=== PATIENT | female | born 1960 | race Caucasian/White ===

== ENCOUNTER → 2016-11-13 | Outpatient (CLI) | payer OTHER ==
--- NOTE | 2016-11-14 07:56 | MM ---
Reason for exam: screening (asymptomatic). Last mammogram was performed 1 year ago. History: Patient is postmenopausal. Family history of breast cancer in aunt at age 82. Benign core biopsy of the left breast, 1996. Physical Findings: A clinical breast exam by your physician is recommended on an annual basis and results should be correlated with mammographic findings. MG Screening Mammo w CAD Bilateral CC and MLO view(s) were taken. Prior study comparison: November 09, 2015, bilateral MG screening mammo w CAD. October 09, 2014, bilateral MG screening mammo w CAD. The breast tissue is heterogeneously dense. This may lower the sensitivity of mammography. No significant changes when compared with prior studies. ASSESSMENT: Benign, BI-RAD 2 RECOMMENDATION: Routine screening mammogram of both breasts in 1 year.
== END | disposition home or self-care (01) ==
LOC: RADMAMWWP 08:07
PROVIDERS: ATTEND Family Medicine
DX: Z12.31 Encounter for screening mammogram for malignant neoplasm of breast (principal)

== ENCOUNTER → 2017-11-24 | Outpatient (CLI) | payer MEDICARE, OTHER ==
--- NOTE | 2017-11-25 13:26 | CT ---
EXAMINATION TYPE: CT lumbar spine wo con DATE OF EXAM: 11/24/2017 9:08 AM COMPARISON: None HISTORY: Degeneration of lumbar intervertebral disc CT DLP: 1571.8 mGycm Automated exposure control for dose reduction was used. TECHNIQUE: Unenhanced CT of the lumbar spine was performed. Bone and soft tissue window settings are submitted as well as coronal and sagittal reconstructions. FINDINGS: The lumbar spine vertebral bodies maintain normal vertebral body height and alignment. Mult ilevel intervertebral disc space narrowing, facet arthropathy, endplate sclerosis, small anterior ost eophytes and vacuum disc phenomena are seen. No acute fracture or dislocation of the lumbar spine. Sa croiliac joints are symmetric with mild degenerative change. Overall evaluation for disc herniation a nd spinal canal stenosis is limited on CT and would be better evaluated with MRI. L1-L2: Normal disc space height. No disc herniation protrusion or central stenosis. No facet joint arthropathy. No evidence for foraminal encroachment. L2-L3: There is a broad-based disc bulge and facet arthropathy resulting in mild left and moderate ri ght neural foraminal narrowing. No significant spinal canal stenosis. L3-L4: There is a broad-based disc bulge and facet arthropathy with posterior disc osteophyte complex es resulting in moderate bilateral neural foraminal narrowing and no significant spinal canal stenosi s. L4-L5: There is a broad-based disc bulge and facet arthropathy with ligamentum flavum buckling result ing in moderate to severe bilateral neural foraminal narrowing and mild spinal canal stenosis. Possib le central disc herniation is seen although better evaluated with MRI. L5-S1: Intervertebral disc desiccation, broad-based disc bulge and vacuum disc disease are seen witho ut focal protrusion to suggest herniation. Mild bilateral neural foraminal narrowing is present witho ut spinal canal stenosis. IMPRESSION: 1. Multilevel moderate disc disease most exaggerated at L4-L5 with possible small disc herniation at this level that would be better evaluated with MRI. As a result of disc disease at L4-L5 there is mil d spinal canal stenosis and moderate to severe bilateral neural foraminal narrowing. 2. Moderate degenerative disc disease resulting in variable degrees of neural foraminal narrowing as described above. 3. No evidence of acute fracture or malalignment of the lumbar spine.
== END ==
LOC: RADCTMAIN 08:25
PROVIDERS: ATTEND Family Medicine
DX: M48.061 Spinal stenosis, lumbar region without neurogenic claudication (principal); M99.73 Connective tissue and disc stenosis of intervertebral foramina of lumbar region; M51.9 Unspecified thoracic, thoracolumbar and lumbosacral intervertebral disc disorder; M46.96 Unspecified inflammatory spondylopathy, lumbar region
CPT/HCPCS: 72131

== ENCOUNTER → 2018-01-07 | Outpatient (CLI) | payer MEDICARE, OTHER ==
--- NOTE | 2018-01-08 13:50 | MM ---
Reason for exam: screening (asymptomatic). Last mammogram was performed 1 year and 2 months ago. History: Patient is postmenopausal. Family history of breast cancer in aunt at age 82. Benign core biopsy of the left breast, 1996. Physical Findings: A clinical breast exam by your physician is recommended on an annual basis and results should be correlated with mammographic findings. MG 3D Screening Mammo W/Cad Bilateral CC and MLO view(s) were taken. Prior study comparison: November 13, 2016, bilateral MG screening mammo w CAD. November 09, 2015, bilateral MG screening mammo w CAD. There are scattered fibroglandular densities. No significant changes when compared with prior studies. ASSESSMENT: Benign, BI-RAD 2 RECOMMENDATION: Routine screening mammogram of both breasts in 1 year.
== END | disposition home or self-care (01) ==
LOC: RADMAMWWP 15:00
PROVIDERS: ATTEND Family Medicine
DX: Z12.31 Encounter for screening mammogram for malignant neoplasm of breast (principal)
CPT/HCPCS: 77063; 77067

== ENCOUNTER → 2018-05-29 | Outpatient (CLI) | payer MEDICARE, OTHER ==
--- NOTE | 2018-05-29 15:18 | NM ---
EXAMINATION TYPE: NM bone scan whole body DATE OF EXAM: 05/29/2018 COMPARISON: CT lumbar spine November 24, 2017. HISTORY: Osteoporosis per order. Right-sided back pain down to knees. Delayed whole-body scanning was performed following the injection of 23.9 mCi Tc 99m MDP. Images acq uired 4 hours post injection. Whole body images in anterior posterior projection as well as additiona l spot images of the abdomen and pelvis are acquired. FINDINGS: There is no suspicious focal increased radiotracer uptake to the spine to suggest osseous metastatic disease. Diffuse uptake surrounding lucency bilateral knees likely reflects arthritic change and estefania cent metallic prosthesis. Increased uptake left shoulder level likely reflects product of degenerativ e change. IMPRESSION: As above.
== END | disposition home or self-care (01) ==
LOC: RADNMMAIN 10:02
PROVIDERS: ATTEND Orthopaedic Surgery
DX: R93.7 Abnormal findings on diagnostic imaging of other parts of musculoskeletal system (principal); M81.0 Age-related osteoporosis without current pathological fracture
CPT/HCPCS: 78306; A9503

== ENCOUNTER → 2018-06-13 | Outpatient (CLI) | payer MEDICARE, OTHER ==
--- NOTE | 2018-06-13 16:04 | US ---
EXAMINATION TYPE: US thyroid st tissue head/neck DATE OF EXAM: 06/13/2018 COMPARISON: NONE CLINICAL HISTORY: E03.9 HYPOTHYROIDISM. GLAND SIZE: Right Lobe: 3.4 x 1.8 x 1.9 cm Overall Parenchyma: heterogenous Left Lobe: 4.1 x 1.7 x 1.5 cm Overall Parenchyma: heterogeneous Isthmus Thickness: 0.3 cm NODULES RIGHT: # of nodules measured on right: 3 1. 1.1 X 0.9 x 1.0 cm solid nodule at the lower pole with poorly defined margins; . This nodule is round and shows no intranodular vascularity. Prior size: no prior 2. 0.5 X 0.5 x 0.3 cm solid nodule at the mid pole with well-defined margins; . This nodule is wide r than tall and shows no intranodular vascularity. Prior size: no prior 3. 0.5 X 0.5 x 0.5 cm solid nodule at the upper pole with well-defined margins; . This nodule is ro und and shows no intranodular vascularity. Prior size: no prior LEFT: # of nodules measured on left: 1. 1.1 X 0.7 x 0.6 cm solid nodule at the lower pole with poorly defined margins; . This nodule is round and shows intranodular vascularity. Prior size: no prior 2. 1.2 X 0.4 x 0.6 cm solid nodule at the mid pole with well-defined margins; . This nodule is wide r than tall and shows intranodular vascularity. Prior size: no prior ISTHMUS: # of nodules measured in the isthmus: 0 Bilateral neck scanned, no evidence of lymphadenopathy. IMPRESSION: 1. Enlarged nodules greater than 1 cm bilateral thyroid lobes.
== END ==
LOC: RADUSWWP 13:24
PROVIDERS: ATTEND Nurse Practitioner Adult Health
DX: E04.2 Nontoxic multinodular goiter (principal); E03.9 Hypothyroidism, unspecified
CPT/HCPCS: 76536

== ENCOUNTER → 2018-08-13 | Outpatient (CLI) | payer MEDICARE, OTHER ==
[~2018-08-13] MED LIST: DENOSUMAB 60 MG/ML 1 ML SYRINGE SQ ONE
[2018-08-13 14:38] VITALS: BP 139/78; PULSE 80; RESP 16; TEMP 97.8
== END ==
LOC: PROCWHC3 14:04
PROVIDERS: ATTEND Nurse Practitioner Adult Health
DX: M81.0 Age-related osteoporosis without current pathological fracture (principal)
CPT/HCPCS: 96372; J0897

== ENCOUNTER → 2019-01-27 | Outpatient (CLI) | payer MEDICARE, OTHER ==
--- NOTE | 2019-01-28 08:27 | US ---
EXAMINATION TYPE: US thyroid st tissue head/neck DATE OF EXAM: 01/27/2019 COMPARISON: 06/13/2018 CLINICAL HISTORY: E04.1 nontoxic single thyroid nodule. follow up exam GLAND SIZE: Right Lobe: 4.7 x 1.7 x 2.1 cm Overall Parenchyma: heterogenous Left Lobe: 4.5 x 1.3 x 1.4 cm Overall Parenchyma: heterogeneous Isthmus Thickness: 0.4 cm NODULES RIGHT: # of nodules measured on right: 1 1. 1.5 X 1.2 x 1.2 cm hyperechoic solid nodule at the lower pole with well-defined margins. This n odule is taller than wide and shows no intranodular vascularity. Prior size: 1.1 x 0.9 x 1.0 cm LEFT: # of nodules measured on left: 0 ISTHMUS: # of nodules measured in the isthmus: 0 Bilateral neck scanned, no evidence of lymphadenopathy. Previous study measured multiple subcentimeter areas in an almost diffusely heterogeneous gland, toda randee's exam I measured the largest nodule noted on the inferior right lobe. IMPRESSION: There is slight interval growth of the largest solid right thyroid nodule in comparison to the prior of 06/13/2018 measuring 1.5 cm and previously measuring 1.1 cm. Multiple other subcentimeter thyroid n odules on the right and solid thyroid nodules on the left are not clearly measured given the diffuse thyroid glandular heterogeneity. Underlying thyroiditis is possible. Given the interval growth of the dominant right thyroid nodule fine-needle aspiration could be considered versus continued short-term follow-up.
== END | disposition home or self-care (01) ==
LOC: RADUSWWP 15:59
PROVIDERS: ATTEND Family Medicine
DX: E04.2 Nontoxic multinodular goiter (principal)
CPT/HCPCS: 76536

== ENCOUNTER → 2019-02-05 | Outpatient (CLI) | payer MEDICARE, OTHER ==
--- NOTE | 2019-02-06 08:46 | MM ---
Reason for exam: screening (asymptomatic). Last mammogram was performed 1 year and 1 month ago. History: Patient is postmenopausal. Family history of breast cancer in aunt at age 82. Benign core biopsy of the left breast, 1996. Physical Findings: A clinical breast exam by your physician is recommended on an annual basis and results should be correlated with mammographic findings. MG 3D Screening Mammo W/Cad Bilateral CC and MLO view(s) were taken. Prior study comparison: January 07, 2018, bilateral MG 3d screening mammo w/cad. November 13, 2016, bilateral MG screening mammo w CAD. The breast tissue is heterogeneously dense. This may lower the sensitivity of mammography. Stable benign calcifications. Focal asymmetry upper outer right breast is stable. No significant changes when compared with prior studies. ASSESSMENT: Benign, BI-RAD 2 RECOMMENDATION: Routine screening mammogram of both breasts in 1 year.
== END | disposition home or self-care (01) ==
LOC: RADMAMWWP 09:08
PROVIDERS: ATTEND Family Medicine
DX: Z12.31 Encounter for screening mammogram for malignant neoplasm of breast (principal)
CPT/HCPCS: 77063; 77067

== ENCOUNTER → 2019-03-03 | Outpatient (CLI) | payer MEDICARE, OTHER ==
[2019-03-03 09:42] VITALS: BP 146/78; PULSE 81; RESP 16; TEMP 97.7
== END ==
LOC: PROCWHC3 09:27
PROVIDERS: ATTEND Nurse Practitioner Adult Health
DX: M81.0 Age-related osteoporosis without current pathological fracture (principal)
CPT/HCPCS: 96372; J0897

== ENCOUNTER → 2019-12-12 | Outpatient (CLI) | payer MEDICARE, OTHER ==
[2019-12-12 10:04] VITALS: BP 177/78; PULSE 81; RESP 15; TEMP 98
== END | disposition home or self-care (01) ==
LOC: PROCWHC3 09:57
PROVIDERS: ATTEND Nurse Practitioner Adult Health
DX: M81.0 Age-related osteoporosis without current pathological fracture (principal)
CPT/HCPCS: 96372; J0897

== ENCOUNTER → 2020-06-16 | Outpatient (CLI) | payer MEDICARE, OTHER ==
[~2020-06-16] MED LIST changes: +DENOSUMAB 60 MG/ML 1 ML SYRINGE SQ NR; -DENOSUMAB 60 MG/ML 1 ML SYRINGE SQ ONE
[2020-06-16 11:51] VITALS: BP 151/86; PULSE 78; RESP 16; TEMP 97.8
== END | disposition home or self-care (01) ==
LOC: PROCWHC3 11:38
PROVIDERS: ATTEND Nurse Practitioner Adult Health
DX: M81.0 Age-related osteoporosis without current pathological fracture (principal)
CPT/HCPCS: 96372; J0897

== ENCOUNTER → 2021-01-04 | Outpatient (CLI) | payer MEDICARE, OTHER ==
[2021-01-04 14:28] VITALS: BP 133/85; PULSE 89; RESP 16; TEMP 98.1
== END ==
LOC: PROCWHC3 13:55
PROVIDERS: ATTEND Nurse Practitioner Adult Health
DX: M81.0 Age-related osteoporosis without current pathological fracture (principal); Z88.6 Allergy status to analgesic agent
CPT/HCPCS: 96372; J0897

== ENCOUNTER → 2021-02-22 | Outpatient (CLI) | payer MEDICARE, OTHER ==
--- NOTE | 2021-02-23 08:21 | US ---
EXAMINATION TYPE: US thyroid st tissue head/neck DATE OF EXAM: 02/22/2021 COMPARISON: US CLINICAL HISTORY: E04.1 Nontoxic single thyroid nodule. Takes Levothyroxine. GLAND SIZE: Right Lobe: 4.9 x 1.9 x 1.6 cm Overall Parenchyma: heterogenous Left Lobe: 4.2 x 1.7 x 1.5 cm Overall Parenchyma: heterogeneous Isthmus Thickness: 0.4 cm NODULES RIGHT: # of nodules measured on right: 3 1. 0.7 X 0.5 x 0.5 cm, upper pole, solid, hyperechoic nodule, which is wide as is tall, with lobula jocelyn or irregular margins, without echogenic foci. Prior size: no previous 2. 0.3 X 0.3 x 0.2 cm, upper medial pole, cystic, anechoic nodule, which is wider than tall, with i rregular margins, without echogenic foci. Prior size: no previous 3. 1.1 X 1.0 x 0.9 cm, lower pole, solid, hyperechoic nodule, which is wider than tall, with ill-de fined margins, without echogenic foci. TR 3 Prior size: 1.5 x 1.5 x 1.2 cm LEFT: # of nodules measured on left: 0 ISTHMUS: # of nodules measured in the isthmus: 0 Bilateral neck scanned: no evidence of lymphadenopathy. IMPRESSION: Mildly suspicious nodule right lobe thyroid 2017 ACR TI-RADS LEVEL: TR-RADS 3 - Mildly Suspicious: Follow if > 1.5 cm, FNA if > 2.5 cm *Highest TI-RADS level nodule reported
== END | disposition home or self-care (01) ==
LOC: RADUSWWP 16:16
PROVIDERS: ATTEND Family Medicine
DX: E04.2 Nontoxic multinodular goiter (principal)
CPT/HCPCS: 76536

== ENCOUNTER → 2021-04-19 | Outpatient (CLI) | payer MEDICARE, OTHER ==
--- NOTE | 2021-04-21 11:46 | MM ---
Reason for exam: screening (asymptomatic). Last mammogram was performed 1 year and 2 months ago. History: Patient is postmenopausal. Family history of breast cancer in aunt at age 82. Benign core biopsy of the left breast, 1996. Physical Findings: A clinical breast exam by your physician is recommended on an annual basis and results should be correlated with mammographic findings. MG 3D Screening Mammo W/Cad Bilateral CC and MLO view(s) were taken. Prior study comparison: February 11, 2020, bilateral MG 3d screening mammo w/cad. February 05, 2019, bilateral MG 3d screening mammo w/cad. The breast tissue is heterogeneously dense. This may lower the sensitivity of mammography. Focal asymmetry right breast, stable. No significant changes when compared with prior studies. ASSESSMENT: Benign, BI-RAD 2 RECOMMENDATION: Routine screening mammogram of both breasts in 1 year.
== END | disposition home or self-care (01) ==
LOC: RADMAMWWP 13:21
PROVIDERS: ATTEND Family Medicine
DX: Z12.31 Encounter for screening mammogram for malignant neoplasm of breast (principal); Z78.0 Asymptomatic menopausal state; Z80.3 Family history of malignant neoplasm of breast
CPT/HCPCS: 77063; 77067

== ENCOUNTER → 2021-07-08 | Outpatient (CLI) | payer MEDICARE, OTHER ==
[2021-07-08 10:01] VITALS: BP 145/82; PULSE 80; RESP 16; TEMP 98.2
== END ==
LOC: PROCWHC3 09:41
PROVIDERS: ATTEND Family Medicine
DX: M81.0 Age-related osteoporosis without current pathological fracture (principal); Z88.6 Allergy status to analgesic agent
CPT/HCPCS: 96372; J0897

== ENCOUNTER → 2021-07-22 | Outpatient (CLI) | payer MEDICARE, OTHER ==
--- NOTE | 2021-07-22 09:22 | CT ---
EXAMINATION TYPE: CT chest wo con DATE OF EXAM: 07/22/2021 INDICATION: lung nodule CT DLP: 551.4 mGy.cm Automated Exposure Control for Dose Reduction was Utilized. TECHNIQUE AND CONTRAST: Multiplanar CT scan of the chest without IV contrast administration. COMPARISON: None available FINDINGS: The following lung nodules are identified: -4 mm left apical nodule (image #14, series 4). -5 mm groundglass nodule in the right lung apex posteriorly, image #15, series 4. -5 mm nodule at the inferior aspect of the left upper lobe/lingula, image #30, series 4). -4 mm nodule in the left lung base, image #59, series 4. Unremarkable lungs otherwise. Patent central airways. No pleural or pericardial effusion. Cardiomegal y, please correlate with echocardiographic results. Surgical clips are seen in the interatrial septum . The pulmonary trunk and ascending aorta are nondilated. No pathologically enlarged lymph nodes in the chest. Bulky liver and spleen. Small sliding hiatal her bhavik. Left adrenal adenoma measuring 2.3 cm. Chronic diverticulosis is seen in the upper abdomen. Left glenohumeral prosthesis. Degenerative changes of the lower cervical and lower thoracic spine. IMPRESSION: Scattered pulmonary nodules measuring up to 5 mm as described above. No previous CT scan is available for comparison, please correlate with previous unavailable images. No follow-up is required for these nodules if low risk patient. If high risk patient, optional follow -up CT scan in 12 months can be considered. Incidental findings as described above.
== END | disposition home or self-care (01) ==
LOC: RADCTMAIN 08:30
PROVIDERS: ATTEND Nurse Practitioner Adult Health
DX: R91.8 Other nonspecific abnormal finding of lung field (principal)
CPT/HCPCS: 71250

== ENCOUNTER → 2022-02-20 | Outpatient (CLI) | payer MEDICARE, OTHER ==
[2022-02-20 11:46] VITALS: BP 132/85; PULSE 70; RESP 16; TEMP 98.3
== END | disposition home or self-care (01) ==
LOC: PROCWHC3 11:35
PROVIDERS: ATTEND Family Medicine
DX: M81.0 Age-related osteoporosis without current pathological fracture (principal)
CPT/HCPCS: 96372; J0897

== ENCOUNTER → 2022-05-03 | Outpatient (CLI) | payer OTHER ==
--- NOTE | 2022-05-04 12:47 | MM ---
Reason for Exam: Screening (asymptomatic). Last mammogram was performed 1 year(s) and 1 month(s) ago. Patient History: Menarche at age 7. First Full-Term at age 18. Left ovary removed at age 27. Right ovary removed at age 27. Hysterectomy at age 27. Postmenopausal. 1996, Benign Core Biopsy on the left side. Maternal aunt had breast cancer, age 82. Risk Values: Hetal 5 year model risk: 1.9%. NCI Lifetime model risk: 7.5%. Prior Study Comparison: 02/05/2019 Bilateral Screening Mammogram, [facility]. 02/11/2020 Bilateral Screening Mammogram, [facility]. 04/19/2021 Bilateral Screening Mammogram, [facility]. Tissue Density: There are scattered fibroglandular densities. Findings: Analyzed By CAD. There is some focal asymmetric density in the upper outer anterior right breast, stable from comparison. Scattered benign calcifications are present bilaterally. No suspicious groups of microcalcifications, spiculated or lobular masses, architectural distortion or other secondary signs of malignancy are mammographically apparent. Overall Assessment: Benign, BI-RAD 2 Management: Screening Mammogram of both breasts in 1 year. A negative mammogram report should not preclude additional follow up of suspicious palpable abnormalities. Patient should continue monthly self breast exam. A clinical breast exam by your physician is recommended on an annual basis and results should be correlated with mammographic findings. Electronically signed and approved by: Ray Moody D.O. Radiologis
== END | disposition home or self-care (01) ==
LOC: RADMAMWWP 16:23
PROVIDERS: ATTEND Family Medicine
DX: Z12.31 Encounter for screening mammogram for malignant neoplasm of breast (principal); Z78.0 Asymptomatic menopausal state; Z80.3 Family history of malignant neoplasm of breast; Z90.721 Acquired absence of ovaries, unilateral
CPT/HCPCS: 77063; 77067

== ENCOUNTER → 2022-12-13 | Outpatient (CLI) | payer MEDICARE ==
--- NOTE | 2022-12-13 11:24 | CT ---
EXAMINATION TYPE: CT chest wo con DATE OF EXAM: 12/13/2022 COMPARISON: 07/22/2021 HISTORY: 62-year-old female R91.8, Abnormal findings. TECHNIQUE: Contiguous axial scanning of the chest without IV contrast. Coronal and sagittal reconstru ctions performed. CT DLP: 835 mGycm Automated exposure control for dose reduction was used. FINDINGS: Heart is normal size without pericardial effusion. PFO closure device noted. Aorta normal caliber with conventional arch vessel branching anatomy. No thoracic lymphadenopathy by CT size criteria. Mild diffuse bronchial wall thickening. Minimal strandy atelectasis in lower lungs. Minimal underlyin g emphysematous change. No consolidation or pleural effusion. Tiny 3 mm benign calcified granuloma left midlung. A 5 mm lingular pulmonary nodule, axial image 29 appears less defined. Benign etiology is suspected. Recommend additional 9 month follow-up. Small hiatal hernia. Mild fatty infiltration of the liver noted. There is splenomegaly of 14.7 cm asif sured on axial series. 2.2 cm low-density lipid rich left adrenal adenoma also incidentally noted. Bones: Scattered mild degenerative disc disease throughout. Left shoulder replacement. IMPRESSION: 1. COPD WITH MINIMAL EMPHYSEMATOUS CHANGE. 2. 5 mm lingular pulmonary nodule is similar. A benign etiology is suspected. Additional 9 month foll ow-up CT to reassess. No other suspicious nodules are seen. 3. Small hiatal hernia, hepatic steatosis, splenomegaly at 14.7 cm, and a 2.2 cm lipid rich left adre nal adenoma.
== END | disposition home or self-care (01) ==
LOC: RADCTMAIN 08:06
PROVIDERS: ATTEND Family Medicine
DX: D35.02 Benign neoplasm of left adrenal gland (principal); J44.9 Chronic obstructive pulmonary disease, unspecified; K44.9 Diaphragmatic hernia without obstruction or gangrene; K76.0 Fatty (change of) liver, not elsewhere classified; R91.8 Other nonspecific abnormal finding of lung field
CPT/HCPCS: 71250

== ENCOUNTER → 2023-01-08 | Outpatient (CLI) | payer MEDICARE ==
[2023-01-08 12:43] VITALS: BP 117/79; PULSE 72; RESP 16; TEMP 98.3
== END ==
LOC: PROCWHC3 12:24
PROVIDERS: ATTEND Family Medicine
DX: M81.0 Age-related osteoporosis without current pathological fracture (principal)
CPT/HCPCS: 96372; J0897

== ENCOUNTER → 2023-05-04 | Outpatient (CLI) | payer OTHER ==
--- NOTE | 2023-05-07 15:37 | MM ---
Reason for Exam: Screening (asymptomatic). Last screening mammogram was performed 12 month(s) ago. Patient History: Menarche at age 7. First Full-Term at age 18. Left ovary removed at age 27. Right ovary removed at age 27. Hysterectomy at age 27. Postmenopausal. Patient has history of breast feeding. 1996, Benign Core Biopsy on the left side. Maternal aunt had breast cancer, age 90. Risk Values: Hetal 5 year model risk: 1.9%. NCI Lifetime model risk: 7.2%. Prior Study Comparison: 11/09/2015 Bilateral Screening Mammogram, [facility]. 11/13/2016 Bilateral Screening Mammogram, [facility]. 01/07/2018 Bilateral Screening Mammogram, [facility]. 02/05/2019 Bilateral Screening Mammogram, [facility]. 02/11/2020 Bilateral Screening Mammogram, [facility]. 04/19/2021 Bilateral Screening Mammogram, [facility]. 05/03/2022 Bilateral MG 3D screening mammo w/cad, [facility]. Tissue Density: There are scattered fibroglandular densities. Findings: Analyzed By CAD. Pattern appears symmetrical. A focal asymmetry in the upper outer right breast, stable from comparison. Multiple benign round calcifications are present bilaterally. No significant interval change. No suspicious groups of microcalcifications, spiculated or lobular masses, architectural distortion or other secondary signs of malignancy are mammographically apparent. Overall Assessment: Benign, BI-RAD 2 Management: Screening Mammogram of both breasts in 1 year. A negative mammogram report should not preclude additional follow up of suspicious palpable abnormalities. Patient should continue monthly self breast exam. A clinical breast exam by your physician is recommended on an annual basis and results should be correlated with mammographic findings. Electronically signed and approved by: Ray Moody D.O. Radiologis
== END | disposition home or self-care (01) ==
LOC: RADMAMWWP 09:17
PROVIDERS: ATTEND Family Medicine
DX: Z12.31 Encounter for screening mammogram for malignant neoplasm of breast (principal); Z80.3 Family history of malignant neoplasm of breast; Z78.0 Asymptomatic menopausal state
CPT/HCPCS: 77063; 77067

== ENCOUNTER → 2024-03-12 | Outpatient (CLI) | payer OTHER ==
[2024-03-12 13:50] VITALS: BP 150/81; PULSE 71; RESP 16; TEMP 97.5
[2024-03-12] MEDS: DENOSUMAB 60 MG/ML 1 ML SYRINGE SQ NR (13:50)
== END ==
LOC: PROCWHC3 13:38
PROVIDERS: ATTEND Nurse Practitioner Adult Health
DX: M81.0 Age-related osteoporosis without current pathological fracture (principal)
CPT/HCPCS: 96372

== ENCOUNTER → 2024-05-06 | Outpatient (CLI) | payer MEDICARE ==
--- NOTE | 2024-05-06 10:59 | BD ---
EXAMINATION TYPE: Axial Bone Density DATE OF EXAM: 05/06/2024 CLINICAL HISTORY: 64 years old Female. ICD-10 CODE: M81.0 AGE OSTEO , Additional History: Height: 5 ft 1 1/2 in Weight: 266 FRAX RISK QUESTIONS: Alcohol (3 or more units per day): no Family History (Parent hip fracture): no Glucocorticoids (More than 3mos): no (Ex: prednisone, prednisolone, methylprednisolone, dexamethasone, and hydrocortisone). History of Fracture in Adulthood: no Secondary Osteoporosis: 1. Type 1 Diabetes: no 2. Hyperthyroidism: no 3. Menopause before 45: yes 4. Malnutrition: no 5. Chronic liver disease: no Rheumatoid Arthritis: no Current Tobacco Use: no RISK FACTORS HISTORY OF: Surgery to Spine/Hip(right/left)/Wrist (right/left): no MEDICATIONS: Thyroid Medications: yes Which medication: synthroid How Lon years Osteoporosis Medications: none EXAM MEASUREMENTS: Bone mineral densitometry was performed using the [employer] System. Bone mineral density as measured about the Lumbar spine is: ----- L1-L4(G/cm2): 1.392 T Score Values are as follows: ----- L1: 0.5 ----- L2: 2.3 ----- L3: 3.3 ----- L4: 1.0 ----- L1-L4: 1.8 Z Score Values are as follows: ----- L1: 0.9 ----- L2: 2.7 ----- L3: 3.8 ----- L4: 1.5 ----- L1-L4: 2.2 baseline Bone mineral density about the R hip (g/cm2): 0.898 Bone mineral density about the L hip (g/cm2): 0.932 T Score values are as follows: -----R Neck: -1.0 -----L Neck: -0.8 -----R Total: -0.4 -----L Total: 0.4 Z Score values are as follows: -----R Neck: -0.3 -----L Neck: 0.0 -----R Total: 0.0 -----L Total: 0.8 Bone mineral density has: decreased -18.6 % since study of: 2006 FRAX%s: The graph provided illustrates a 6.7 % chance for a major osteoporotic fx and a 0.4 % chance for the hips probability for fx in 10 years time. IMPRESSION: Normal (Values between +1 and -1 indicate normal bone mass). Consider repeating this study in 5 year s or sooner if there is some new clinical indication. NOTE: T-SCORE=SD OF THE YOUNG ADULT MEAN. [facility], , 05/06/2024 10:57 AM
--- NOTE | 2024-05-06 11:06 | US ---
EXAMINATION TYPE: US thyroid st tissue head/neck DATE OF EXAM: 05/06/2024 COMPARISON: NONE CLINICAL INDICATION: Female, 64 years old with history of E04.1 SINGLE THYROID NODULE; F/U TECHNIQUE: Grayscale and color Doppler imaging of the thyroid gland. FINDINGS: GLAND SIZE: Right Lobe: 3.8 x 1.6 x 2.2 cm Overall Parenchyma: heterogeneous Left Lobe: 3.0 x 1.3 x 1.7 cm Overall Parenchyma: heterogeneous Isthmus Thickness: 0.3 cm Diffusely heterogeneous gland bilaterally - patient had recent neck injury and cannot hyperextend for optimal imaging Bilateral neck scanned, no evidence of lymphadenopathy. IMPRESSION: Diffusely heterogeneous tissue which could be associated with a thyroiditis. No discrete thyroid nodu les identified. 2017 ACR TI-RADS LEVEL: TR-RADS 1 - BENIGN: No FNA *Highest TI-RADS level nodule reported [email or web address] [facility], , 05/06/2024 11:04 AM
--- NOTE | 2024-05-06 11:42 | CT ---
EXAMINATION TYPE: CT chest wo con CT DLP: 618.70 mGycm, Automated exposure control for dose reduction was used. DATE OF EXAM: 05/06/2024 11:05 AM COMPARISON: CT chest 12/13/2022, 07/22/2021 CLINICAL INDICATION:Female, 64 years old with history of R91.1 SPN; PHH, Lung nodules TECHNIQUE: Multiple axial images were obtained through the chest without IV contrast. Lack of IV or o ral contrast limits evaluation of solid and hollow organ viscera. . Coronal and sagittal reformats re viewed. FINDINGS: LUNGS/ PLEURA: No effusion, pneumothorax, focal consolidation. Minimal underlying of edematous change . Stable lingular 3 mm pulmonary nodule (series 4, image 30). Stable tiny left midlung calcified gran uloma. No new or enlarging pulmonary nodules. AIRWAY: Patent and unremarkable.. HEART: Size within normal limits.No pericardial effusion. PFO closure device redemonstrated. MEDIASTINUM: No gross evidence of adenopathy. VASCULATURE: No aortic aneurysm. MUSCULOSKELETAL: No acute osseous abnormalities. Postsurgical changes from left shoulder arthroplasty . Right shoulder arthropathy. Multilevel degenerative disc disease. SOFT TISSUES/LYMPH NODES: Unremarkable. LOWER NECK: No significant findings. UPPER ABDOMEN: There is low attenuation of the liver are redemonstrated. Redemonstration of low densi ty left adrenal gland nodule measuring 2.2 cm. IMPRESSION: 1. Stable lingular pulmonary nodule. No new or enlarging pulmonary nodules. 2. Hepatic steatosis. 3. Stable left adrenal lipid rich adenoma. [facility], , 05/06/2024 11:40 AM
--- NOTE | 2024-05-07 10:02 | MM ---
Reason for Exam: Screening (asymptomatic). Last screening mammogram was performed 12 month(s) ago. Patient History: Menarche at age 7. First Full-Term at age 18. Left ovary removed at age 27. Right ovary removed at age 27. Hysterectomy at age 27. Postmenopausal. Patient has history of breast feeding. 1996, Benign Core Biopsy on the left side. Maternal aunt had breast cancer, age 90. Risk Values: Hetal 5 year model risk: 1.9%. NCI Lifetime model risk: 7.0%. Prior Study Comparison: 04/19/2021 Bilateral Screening Mammogram, [facility]. 05/03/2022 Bilateral MG 3D screening mammo w/cad, [facility]. 05/04/2023 Bilateral MG 3D screening mammo w/cad, [facility]. Tissue Density: The breasts are heterogeneously dense, which may obscure small masses. Findings: Analyzed By CAD. Right breast: There is no suspicious group of microcalcifications or new suspicious mass. Benign-appearing calcifications right breast. Left breast: There is no suspicious group of microcalcifications or new suspicious mass. Benign-appearing calcifications left breast. Overall Assessment: Benign, BI-RAD 2 Management: Screening Mammogram of both breasts in [address] [facility] will attempt to contact patient to return for supplemental views and ultrasound if indicated. Patient should continue monthly self-breast exams. A clinical breast exam by your physician is recommended on an annual basis. This exam should not preclude additional follow-up of suspicious palpable abnormalities. Note on Hetal scores and lifetime risk: 1. A Hetal score greater than 3% is considered moderate risk. If this is the case, consider specialist referral to assess eligibility for a risk reducing agent. 2. If overall lifetime risk for the development of breast cancer is 20% or higher, the patient may qualify for future screening with alternating mammogram and breast MRI. [facility], , 05/07/2024 10:00 AM. Electronically signed and approved by: Brandon Manley DO
== END | disposition home or self-care (01) ==
LOC: RADMAMWWP 09:32
PROVIDERS: ATTEND Family Medicine
DX: Z12.31 Encounter for screening mammogram for malignant neoplasm of breast (principal); R92.333 Mammographic heterogeneous density, bilateral breasts; R91.1 Solitary pulmonary nodule; E04.1 Nontoxic single thyroid nodule; M81.0 Age-related osteoporosis without current pathological fracture; K76.0 Fatty (change of) liver, not elsewhere classified; E27.8 Other specified disorders of adrenal gland; Z78.0 Asymptomatic menopausal state; Z80.3 Family history of malignant neoplasm of breast
CPT/HCPCS: 71250; 76536; 77063; 77067; 77080

== ENCOUNTER → 2024-06-02 | Outpatient (CLI) | payer MEDICARE ==
--- NOTE | 2024-06-02 15:21 | CT ---
EXAMINATION TYPE: CT cervical spine wo con DATE OF EXAM: 06/02/2024 12:16 PM COMPARISON: None. CLINICAL INDICATION: Female, 64 years old with history of M54.2 cervicalgia, neck pain, no injury, Ning ng cancer screening, History of tobacco use. TECHNIQUE: CT of the cervical spine is performed in the axial plane at 2 mm thick sections. Reconstr ucted images in the coronal, and sagittal plane are reviewed on the computer. Contrast used: mL of , (none if empty) Oral contrast used: (none if empty) CT DLP: 692.5 mGycm, Automated exposure control for dose reduction was used. FINDINGS: No acute fractures are evident. Vertebral body alignment is normal. There is disc space narrowing C5-6 C6-7. Some anterior acute by spurring is present C6-7. Small poste rior endplate spurs are present C5-6 C6-7. No spinal canal stenosis is present Vertebral body heights are preserved. No spinal canal stenosis is evident Moderate foraminal narrowing from uncovertebral joint hypertrophy is present C5-6. Milder foraminal n arrowing is at C6-7. IMPRESSION: 1. Mild degenerative disc changes and foraminal narrowing discussed above C5-6 C6-7. [facility], , 06/02/2024 3:19 PM
== END | disposition home or self-care (01) ==
LOC: RADCTMAIN 11:14
PROVIDERS: ATTEND Physical Medicine & Rehabilitation
DX: M48.02 Spinal stenosis, cervical region (principal); M50.822 Other cervical disc disorders at C5-C6 level; M47.812 Spondylosis without myelopathy or radiculopathy, cervical region; M43.12 Spondylolisthesis, cervical region
CPT/HCPCS: 72125

== ENCOUNTER → 2024-09-11 | Outpatient (CLI) | payer MEDICARE ==
[2024-09-11 13:51] VITALS: BP 127/66; PULSE 66; RESP 16; TEMP 97.7
[2024-09-11] MEDS: DENOSUMAB 60 MG/ML 1 ML SYRINGE SQ NR (13:51)
== END ==
LOC: PROCWHC3 13:42
PROVIDERS: ATTEND Nurse Practitioner Adult Health
DX: M81.0 Age-related osteoporosis without current pathological fracture (principal)
CPT/HCPCS: 96372; J0897